=== PATIENT | male | born 1945 | race Caucasian/White ===

== ENCOUNTER 2018-09-20 13:06 | Emergency (ER) | payer OTHER ==
[2018-09-20] MEDS: ACETAMINOPHEN 325 MG TAB PO (13:59)
[2018-09-20] MEDS: IBUPROFEN 200 MG TAB PO (13:59)
== END 2018-09-20 15:34 | disposition home or self-care (01) ==
LOC: FTE 13:06
DX: S40.012A Contusion of left shoulder, initial encounter (principal); I10 Essential (primary) hypertension; V09.29XA Pedestrian injured in traffic accident involving other motor vehicles, initial encounter
CPT/HCPCS: 73030; 73080-LT; 73510; 99284-25